=== PATIENT | male | born 1975 | race African-American/Black ===

== ENCOUNTER 2019-02-03 20:29 | Emergency (ER) | payer OTHER ==
[~2019-02-03] VITALS: Ht 182.9 cm; Wt 74.8 kg
[~2019-02-03 20:29] MED LIST: BACL20TA4 PO; CIPR500T4 PO; DETLA4 PO; GABA300C1 PO; MULT-1398 PO; OXYC5TAB4 PO; SENN-58 PO
[2019-02-03 20:45] VITALS: BP 113/66
--- NOTE | 2019-02-03 20:48 | NUR ---
PT WHEELED SELF TO LOBBY WITH VSS.
--- NOTE | 2019-02-03 20:55 | NUR ---
PT USED WHEELCHAIR ASSISTANCE TO CHAIR A.
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
[2019-02-03] MEDS ORDERED: KETOROLAC 60 MG/2 ML VIAL IM ONE (21:30)
[2019-02-03 21:59] VITALS: BP 113/66
--- NOTE | 2019-02-03 21:59 | NUR ---
Patient discharged with v/s stable. Written and verbal after care instructions given and explained. Patient alert, oriented and verbalized understanding of instructions. Wheel Chair Assisted with to car. All questions addressed prior to discharge. ID band removed. Patient advised to follow up with PMD. Rx of NAPROXEN WAS given. Patient educated on indication of medication including possible reaction and side effects. Opportunity to ask questions provided and answered.
== END 2019-02-03 21:59 | disposition home or self-care (01) ==
LOC: MED 20:29
DX: G89.29 Other chronic pain (principal); M54.6 Pain in thoracic spine; Z86.73 Personal history of transient ischemic attack (TIA), and cerebral infarction without residual deficits; Z79.899 Other long term (current) drug therapy
CPT/HCPCS: 96372; 99283; J1885

== ENCOUNTER 2019-09-19 19:56 | Emergency (ER) | payer OTHER ==
[~2019-09-19] VITALS: Ht 182.9 cm; Wt 77.1 kg
--- NOTE | 2019-09-19 19:56 | NUR ---
PT WHEELCHAIRED TO BED #6
--- NOTE | 2019-09-19 19:58 | NUR ---
BACK PAIN X 2 MONTHS. PT CAME IN TO ED VERY ANXIOUS. PT STAES HE LIVES IN [place] AND HE HAS A CAREGIVER THAT TAKS CARE OF HIM. VSS. A & O X 4. LUG SOUDS CLEAR ALL THROUGHOUT. HEART SOUND S1S2 NOTED. HX- HYPOTHYRDOISIM, BLOOD CLOTS, PARAPLEGIA NKA
--- NOTE | 2019-09-19 20:11 | NUR ---
PT REFUSED TO COLLECT URINE SAMPLE DESPITE EDUCATION, PT STATED "I REFUSE TO GIVE URINE, I HAVE NO URINE INFECTION." DR SLAUGHTER MADE AWARE
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
--- NOTE | 2019-09-19 21:03 | NUR ---
PROVIDED PAPER PANTS FOR PT.
[2019-09-19] MEDS ORDERED: ACETAMINOPHEN 325 MG TAB PO ONE (21:10)
[2019-09-19 21:46] VITALS: BP 137/102
--- NOTE | 2019-09-19 21:46 | NUR ---
Patient discharged with v/s stable. Written and verbal after care instructions given and explained. Patient verbalized understanding. Wheel Chair Assisted with to LOBBY. All questions addressed prior to discharge. Advised to follow up with PMD.
== END 2019-09-19 21:46 | disposition home or self-care (01) ==
LOC: MED 19:56
DX: M54.9 Dorsalgia, unspecified (principal); E89.0 Postprocedural hypothyroidism; Z79.899 Other long term (current) drug therapy
CPT/HCPCS: 99282